=== PATIENT | female | born 1980 | race African-American/Black ===

== ENCOUNTER 2017-01-15 10:56 | Emergency (ER) | payer SELFPAY ==
[~2017-01-15] VITALS: Ht 160 cm; Wt 85.7 kg
[2017-01-15] MEDS ORDERED: LIDOCAINE 2% VISCOUS 15 ML SOLUTION. SWSW ONE (11:30)
[2017-01-15] MEDS ORDERED: DEXAMETHASONE SOD PHOS 20 MG/5 ML VIAL. IM ONE (11:30)
--- NOTE | 2017-01-15 11:31 | PHYS DOC ---
Past Medical History Past Medical History: Anemia, Arthritis, Other Additional Past Medical Histor: RA Past Surgical History: No Surgical History Alcohol Use: Occasionally Drug Use: None Adult General Chief Complaint Chief Complaint: CHEST PAIN, SORE THROAT HPI HPI Patient is a 36 year old FEMALE who presents with 1 day of chest wall pain, sore throat, worse with deep inspiration. Reports painful to swallow. Pt has RA and thinks she's having a "flare" causing left leg pain. She attempted 1 hydrocodone she has for her RA. Denies known fever. Review of Systems Review of Systems Constitutional: Denies fever or chills [] Eyes: Denies change in visual acuity, redness, or eye pain [] HENT: Denies nasal congestion or sore throat [] Respiratory: Denies cough or shortness of breath [] Cardiovascular: No additional information not addressed in HPI [] GI: Denies abdominal pain, nausea, vomiting, bloody stools or diarrhea [] : Denies dysuria or hematuria [] Musculoskeletal: Denies back pain or joint pain [] Integument: Denies rash or skin lesions [] Neurologic: Denies headache, focal weakness or sensory changes [] Endocrine: Denies polyuria or polydipsia [] Current Medications Current Medications Current Medications Medications (Trade) Dose Ordered Sig/David Start Time Stop Time Status Last Admin Dose Admin Acetaminophen/ Hydrocodone Bitart (Lortab 7.5-325/ 15ml Oral Solution) 15 ml 1X ONCE 01/15/17 11:45 01/15/17 11:46 DC 01/15/17 11:55 15 ML Dexamethasone Sodium Phosphate (Decadron) 10 mg 1X ONCE 01/15/17 11:30 01/15/17 11:31 DC 01/15/17 11:57 10 MG Dopamine HCl/ Dextrose 250 ml @ 0 mls/hr 1X ONCE 01/15/17 11:30 01/15/17 11:30 DC Lidocaine HCl (Viscous Lidocaine) 15 ml 1X ONCE 01/15/17 11:30 01/15/17 11:31 DC 01/15/17 11:54 15 ML Allergies Allergies Allergies Coded Allergies Type Severity Reaction Last Updated Verified No Known Drug Allergies 08/20/14 No Physical Exam Physical Exam Constitutional: Well developed, well nourished, no acute distress, non-toxic appearance. [] HENT: Normocephalic, atraumatic, bilateral external ears normal,orapharynx erythema without exudate, mild edema, uvula midline Eyes: PERRLA, EOMI, conjunctiva normal, no discharge. [] Neck: Normal range of motion, no tenderness, supple, no stridor. [] Cardiovascular:Heart rate regular with regular rhythm, no murmur [], no wheeze or crackles [] Abdomen: Bowel sounds normal, soft, no tenderness, no masses, no pulsatile masses. [] Skin: Warm, dry, no erythema, no rash. [] Back: No tenderness, no CVA tenderness. [] Extremities: No tenderness, no cyanosis, no clubbing, ROM intact, no edema, negative homen's Neurologic: Alert and oriented X 3, normal motor function, normal sensory function, no focal deficits noted. [] Psychologic: Affect normal, judgement normal, mood normal. [] Current Patient Data Vital Signs Vital Signs Date Time Temp Pulse Resp B/P (MAP) Pulse Ox O2 Delivery O2 Flow Rate FiO2 01/15/17 14:24 78 117/60 (79) 96 Room Air 01/15/17 11:15 100.1 20 100.1 Lab Values Laboratory Tests Test 01/15/17 10:28 POC Urine HCG, Qualitative Hcg negative (Negative) EKG EKG 4 bpm, sinus, normal axis, no ST elevation or depression, QTC of 458, ischemic T waves, interpreted by me Radiology/Procedures Radiology/Procedures CXr IMPRESSION: No acute cardiopulmonary abnormality is detected. [] Course & Med Decision Making Course & Med Decision Making Pertinent Labs and Imaging studies reviewed. (See chart for details) Patient was given by mouth viscous lidocaine, hydrocodone, IM decadron. Rapid strep was negative. Chest x-ray no acute cardiopulmonary process. Patient was discharged with pain medication and instructions to wash hands frequently, drink plenty fluids, ibuprofen as needed for pain. Dragon Disclaimer Dragon Disclaimer This electronic medical record was generated, in whole or in part, using a voice recognition dictation system. Departure Departure Impression: Primary Impression: Viral pharyngitis Disposition: 01 HOME, SELF-CARE Condition: STABLE Referrals: AILYN BEGUM MD (PCP) Scripts Ibuprofen (IBUPROFEN) 600 Mg Tablet 600 MG PO PRN Q6HRS Y for PAIN, #20 TAB take with food or milk Prov: FAYE ORTIZ MD 01/15/17 Hydrocodone Bit/Acetaminophen (HYDROCODONE-APAP 7.5-325/15 SOLN ) 15 Ml Solution 15 ML PO PRN Q6HRS Y for PAIN, #120 ML 0 Refills Prov: FAYE ORTIZ MD 01/15/17 FAYE ORTIZ MD Jan 15, 2017 11:31
[2017-01-15] MEDS ORDERED: HYDROcodon/APAP 7.5/325MG ORAL 15 ML SOLUTION PO ONE (11:45)
--- NOTE | 2017-01-15 11:46 | EKG ---
[facility] [address] [place] [address] Test Date: 2017-01-15 Test Time: 11:02:39 Pat Name: LIBERTY LAKHANI Department: Room: Gender: F Quality Reviewer: : 1980 Requested By: FAYE ORTIZ Order Number: [id number] Reading MD: Aime Nguyễn Measurements Intervals [place] Rate: 94 P: 51 NC: 130 QRS: 59 QRSD: 88 T: 26 QT: 362 QTc: 458 Interpretive Statements SINUS RHYTHM Electronically Signed On 01-17-2017 8:48:46 CDT by Aime Nguyễn
--- NOTE | 2017-01-15 12:20 | RAD ---
Chest, 2 views, 01/15/2017: History: Chest pain, weakness Comparison is made to a study from 10/23/2011. The heart size and pulmonary vascularity are normal. No pulmonary infiltrates are seen. There is no evidence of pleural fluid. IMPRESSION: No acute cardiopulmonary abnormality is detected.
[2017-01-15 14:24] VITALS: BP 117/60
[2017-01-15] MEDS ORDERED: HYDR15SO4 PO (14:35)
[2017-01-15] MEDS ORDERED: IBUP-1007 PO (14:36)
[2017-01-16 07:36] LABS: NEGATIVE OBC STREP NEG; POSITIVE OBC STREP POS
== END 2017-01-15 14:48 | disposition home or self-care (01) ==
LOC: ER 10:56
DX: J02.9 Acute pharyngitis, unspecified (principal); B34.9 Viral infection, unspecified; M19.90 Unspecified osteoarthritis, unspecified site; M06.9 Rheumatoid arthritis, unspecified
CPT/HCPCS: 71020; 81025; 87070; 87880; 93005; 96372; 99285; J1100

== ENCOUNTER 2020-08-08 13:30 | Emergency (ER) | payer SELFPAY ==
[~2020-08-08] VITALS: Ht 160 cm; Wt 95.0 kg
[~2020-08-08 13:30] MED LIST: HYDR-2769 PO; HYDR15SO6 PO; IBUP-1007 PO; PANT40TA77 PO
[2020-08-08 13:36] VITALS: BP 180/97
--- NOTE | 2020-08-08 14:44 | RAD ---
US DPLX VENOUS EXTREMITY LOWER RT 08/08/2020 2:05 PM Clinical Information: Pain and swelling of the inner thigh. Comparison: None. Technique: Multiple grayscale, color Doppler, and spectral Doppler sonographic images of the lower ex tremity venous structures were obtained. Findings: The right common femoral, femoral, and popliteal veins exhibit normal compression, respiratory phasic ity, and augmentation. No intraluminal thrombi are identified. Color Doppler flow is demonstrated in the right posterior tibial and peroneal veins. Nonocclusive thrombus identified within the right greater saphenous vein in the mid thigh with associ ated varicosities. Impression: 1. No evidence of deep venous thrombosis. 2. Superficial venous thrombosis involving greater saphenous vein. Electronically signed by: Justine Philippe MD (08/08/2020 2:41 PM) [id number]
--- NOTE | 2020-08-08 15:53 | PHYS DOC ---
Past Medical History Past Medical History: Anemia, Arthritis, Endometriosis, Other Additional Past Medical Histor: RA, OSTEOPOROSIS, TENDONITIS (CAROL PEPPER APRN) Past Surgical History: Other Additional Past Surgical Histo: abd scar tissue removal (CAROL PEPPER APRN) Smoking Status: Current Every Day Smoker Alcohol Use: Occasionally Drug Use: None (CAROL PEPPER APRN) General Adult EDM: Chief Complaint: LOWER EXT PAIN HPI: HPI: Patient is a 39 year old female patient presenting to the ED today complaining of pain on the right medial thigh that began yesterday. Patient states she noted an area of swelling underneath her skin on the right medial thigh since yesterday, patient states the area is painful only when she stands and starts walking. Denies any pain right now in the ED. Denies any trauma. Denies being on any control. Denies any recent hospitalizations or surgeries, denies any long car rides or air travel. Denies being on any hormones. (CAROL PEPPER APRN) Review of Systems: Review of Systems: Constitutional: Denies fever or chills. [] Musculoskeletal: right medial thigh swelling and pain. Denies back pain Integument: Denies rash. [] Neurologic: Denies headache, focal weakness or sensory changes. [] Psychiatric: Denies depression or anxiety. [] (CAROL PEPPER APRN) Heart Score: Risk Factors: Risk Factors: DM, Current or recent (<one month) smoker, HTN, HLP, family history of CAD, obesity. Risk Scores: Score 0 - 3: 2.5% MACE over next 6 weeks - Discharge Home Score 4 - 6: 20.3% MACE over next 6 weeks - Admit for Clinical Observation Score 7 - 10: 72.7% MACE over next 6 weeks - Early Invasive Strategies (CAROL PEPPER APRN) Allergies: Allergies: Allergies Coded Allergies Type Severity Reaction Last Updated Verified amoxicillin Allergy Intermediate Hives 02/11/17 Yes morphine Allergy Intermediate Itching 02/11/17 Yes oxycodone Adverse Reaction Severe Swelling 02/14/17 Yes (CARLO PEPPER APRN) Physical Exam: PE: Constitutional: Well developed, well nourished, no acute distress, non-toxic appearance. [] Skin: Warm, dry, no erythema, no rash. [] Back: No tenderness, no CVA tenderness. [] Extremities: right medial thigh with a palpable small mass with no redness or drainage or warmth. Tenderness to the area. +2 bilateral pedal pulses. Cap refill less than 2 seconds the point and left lower extremities. Negative Homans' sign to the right lower extremity. Neurologic: Alert and oriented X 3, normal motor function, normal sensory function, no focal deficits noted. [] Psychologic: Affect normal, judgement normal, mood normal. [] (CAROL PEPPER APRN) Current Patient Data: Vital Signs: Vital Signs Date Time Temp Pulse Resp B/P (MAP) Pulse Ox O2 Delivery O2 Flow Rate FiO2 08/08/20 13:36 98.3 93 16 180/97 (124) 98 Room Air 98.3 (CAROL PEPPER APRN) EKG: EKG: [] (CAROL PEPPER APRN) Radiology/Procedures: Radiology/Procedures: []PROCEDURE: VENOUS LOWER EXTREMITY RIGHT US DPLX VENOUS EXTREMITY LOWER RT 08/08/2020 2:05 PM Clinical Information: Pain and swelling of the inner thigh. Comparison: None. Technique: Multiple grayscale, color Doppler, and spectral Doppler sonographic images of the lower extremity venous structures were obtained. Findings: The right common femoral, femoral, and popliteal veins exhibit normal compress ion, respiratory phasicity, and augmentation. No intraluminal thrombi are identified. Color Doppler flow is demonstrated in the right posterior tibial and peroneal veins. Nonocclusive thrombus identified within the right greater saphenous vein in the mid thigh with associated varicosities. Impression: 1. No evidence of deep venous thrombosis. 2. Superficial venous thrombosis involving greater saphenous vein. Electronically signed by: René Philippe MD (08/08/2020 2:41 PM) [id number] DICTATED and SIGNED BY: RENÉ PHILIPPE MD DATE: 08/08/20 [id number] (CAROL PEPPER APRN) Course & Med Decision Making: Course & Med Decision Making Pertinent Labs and Imaging studies reviewed. (See chart for details) This is a 39-year-old female patient presenting to the ED today complaining of right medial thigh pain and swelling since yesterday. Venous Doppler of the right lower extremity is negative for deep vein thrombosis, noted for superficial thrombus. Discharged on aspirin 325 mg, follow-up with PCP. (CAROL PEPPER APRN) Rah Disclaimer: Rah Disclaimer: This electronic medical record was generated, in whole or in part, using a voice recognition dictation system. (CAROL PEPPER APRN) Departure Departure Impression: Primary Impression: Edema Disposition: 01 DC HOME SELF CARE/HOMELESS Condition: STABLE Referrals: NO PCP (PCP) Attending Signature Attending Signature I have reviewed the PA/PIE CHEF's note and plan of care. I was available for consultation as needed during the patient's visit in the emergency department. I agree with the clinical impression, plan, and disposition. (AILYN ALMEIDA DO) CAROL PEPPER APRN Aug 08, 2020 15:53 AILYN ALMEIDA DO Aug 08, 2020 17:17
== END 2020-08-08 15:54 | disposition home or self-care (01) ==
LOC: ER 13:30
DX: R60.0 Localized edema (principal); F17.200 Nicotine dependence, unspecified, uncomplicated; Z88.1 Allergy status to other antibiotic agents; Z88.5 Allergy status to narcotic agent
CPT/HCPCS: 93971; 99284-25; 99285-25